=== PATIENT | male | born 1975 | race Hispanic/Latino ===

== ENCOUNTER 2019-05-03 21:22 | Emergency (ER) | payer MEDICARE ==
[~2019-05-03] VITALS: Ht 185.4 cm; Wt 156.5 kg
--- OUTSIDE RECORDS SUMMARY | 2019-05-03 21:25 | XMS REPORT ---
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 Allergies, Adverse Reactions, Alerts This patient has no known allergies or adverse reactions. Medications This patient has no known medications. Encounters Start Date/Time End Date/Time Encounter Type Admission Type Attending Clinicians Care Facility Care Department Encounter ID 2018-04-21 14:26:31 Inpatient [facility] [id number] 2018-04-21 08:24:52 Inpatient [facility] [id number] 2018-04-21 00:00:00 Inpatient [facility] [id number] 2018-04-20 00:00:00 Inpatient [facility] [id number] 2018-04-18 17:41:06 Inpatient [facility] [id number] 2018-04-16 15:30:10 Inpatient [facility] [id number] 2016-09-17 16:33:27 Inpatient [facility] [id number] 2016-09-11 14:13:26 Inpatient [facility] [id number] 2016-09-11 13:33:17 Inpatient [facility] [id number] 2016-09-07 21:19:26 Inpatient [facility] [id number] 2016-09-07 21:19:11 Inpatient [facility] [id number] 2016-09-07 21:18:56 Inpatient [facility] [id number] 2016-09-03 15:48:49 Inpatient [facility] [id number] 2016-08-29 00:00:00 Inpatient [facility] [id number] 2016-08-28 18:09:14 Inpatient [facility] [id number] 2016-08-28 07:26:01 Inpatient [facility] [id number] 2016-08-28 00:00:00 Inpatient [facility] [id number] 2016-08-26 00:28:26 Inpatient [facility] [id number] 2016-08-25 02:05:20 Inpatient [facility] [id number] 2016-08-23 14:26:53 Inpatient [facility] [id number] 2016-08-23 02:16:47 Inpatient [facility] [id number] 2016-08-23 00:02:44 Inpatient [facility] [id number] 2016-08-22 20:06:01 Inpatient [facility] [id number] 2016-08-22 03:50:19 Inpatient [facility] [id number] 2016-08-21 14:11:52 Inpatient [facility] [id number] 2016-08-21 10:12:43 Inpatient [facility] [id number] 2016-08-21 09:26:44 Inpatient [facility] [id number] 2016-08-21 05:52:24 Inpatient [facility] [id number] 2016-08-20 08:29:28 Inpatient [facility] [id number] 2016-08-19 14:34:17 Inpatient [facility] [id number] 2016-08-19 07:22:16 Inpatient [facility] [id number] 2016-08-19 07:11:43 Inpatient [facility] [id number] 2016-08-17 17:55:59 Inpatient [facility] [id number] 2016-08-13 13:52:07 Inpatient [facility] [id number] 2016-08-13 11:45:45 Inpatient [facility] [id number] 2016-08-12 09:34:44 Inpatient [facility] [id number] 2016-08-09 12:32:02 Inpatient [facility] [id number] 2016-08-09 11:48:50 Inpatient [facility] [id number] 2016-08-07 15:06:57 Inpatient [facility] [id number] 2016-08-06 11:57:24 Inpatient [facility] [id number] 2016-08-05 07:53:38 Inpatient [facility] [id number] 2016-08-02 16:54:50 Inpatient [facility] [id number] 2016-08-02 08:52:14 Inpatient [facility] [id number] 2016-07-23 10:33:11 Inpatient [facility] [id number] 2016-07-20 15:22:35 Inpatient [facility] [id number] 2016-07-20 15:21:03 Inpatient [facility] [id number] 2016-07-19 21:43:54 Inpatient [facility] [id number] 2016-07-17 04:51:29 Inpatient [facility] [id number] 2016-07-15 13:26:16 Inpatient [facility] [id number] 2016-07-15 11:17:26 Inpatient [facility] [id number] 2016-07-15 00:00:00 Inpatient [facility] [id number] 2016-07-14 10:54:17 Inpatient [facility] [id number] 2016-07-11 19:38:39 Inpatient [facility] [id number] 2016-07-11 12:43:36 Inpatient [facility] [id number] 2016-07-10 16:03:47 Inpatient [facility] [id number] 2016-07-09 06:34:07 Inpatient [facility] [id number] 2016-07-08 18:14:02 Inpatient [facility] [id number] 2016-07-08 13:15:34 Inpatient [facility] [id number] 2016-07-08 12:46:46 Inpatient [facility] [id number] 2016-07-07 19:46:56 Inpatient [facility] [id number] 2019-06-01 00:00:00 2019-06-01 00:00:00 Outpatient [facility] [id number] 2019-03-07 11:21:22 2019-03-07 11:21:22 Outpatient [facility] [id number] 2019-02-03 12:52:12 2019-02-03 12:52:12 Outpatient [facility] [id number] 2019-02-03 10:47:52 2019-02-03 10:47:52 Outpatient [facility] [id number] 2019-01-08 00:00:00 2019-01-08 00:00:00 Outpatient [facility] [id number] 2019-01-08 00:00:00 2019-01-08 00:00:00 Outpatient [facility] [id number] 2019-01-07 11:32:10 2019-01-07 11:32:10 Outpatient [facility] [id number] 2019-01-07 00:00:00 2019-01-07 00:00:00 Outpatient [facility] [id number] 2019-01-07 00:00:00 2019-01-07 00:00:00 Outpatient [facility] [id number] 2019-01-06 07:52:00 2019-01-06 07:52:00 Outpatient [facility] [id number] 2018-12-23 14:21:09 2018-12-23 14:21:09 Outpatient [facility] [id number] 2018-12-23 12:51:02 2018-12-23 12:51:02 Outpatient [facility] [id number] 2018-12-16 17:34:59 2018-12-16 17:34:59 Emergency [facility] [id number] 2018-12-16 16:24:35 2018-12-16 16:24:35 Emergency [facility] [id number] 2018-12-05 07:07:23 2018-12-05 07:07:23 Outpatient [facility] [id number] 2018-12-03 14:31:41 2018-12-03 14:31:41 Outpatient [facility] [id number] 2018-12-01 14:12:28 2018-12-01 14:12:28 Outpatient [facility] [id number] 2018-12-01 13:23:33 2018-12-01 13:23:33 Outpatient [facility] [id number] 2018-11-28 07:38:29 2018-11-28 07:38:29 Outpatient [facility] [id number] 2018-11-26 09:44:32 2018-11-26 09:44:32 Outpatient [facility] [id number] 2018-11-26 08:28:22 2018-11-26 08:28:22 Outpatient [facility] [id number] 2018-11-25 21:41:38 2018-11-25 21:41:38 Outpatient [facility] [id number] 2018-11-23 12:33:14 2018-11-23 12:33:14 Emergency [facility] [id number] 2018-11-23 07:12:04 2018-11-23 07:12:04 Outpatient [facility] [id number] 2018-11-22 07:44:37 2018-11-22 07:44:37 Emergency [facility] [id number] 2018-11-22 05:24:33 2018-11-22 05:24:33 Emergency [facility] [id number] 2018-11-17 15:57:27 2018-11-17 15:57:27 Outpatient [facility] [id number] 2018-10-27 12:33:02 2018-10-27 12:33:02 Outpatient [facility] [id number] 2018-10-27 10:40:52 2018-10-27 10:40:52 Outpatient [facility] [id number] 2018-10-17 08:24:44 2018-10-17 08:24:44 Outpatient [facility] [id number] 2018-10-15 09:01:38 2018-10-15 09:01:38 Outpatient [facility] [id number] 2018-10-10 13:54:34 2018-10-10 13:54:34 Outpatient [facility] [id number] 2018-10-10 00:00:00 2018-10-10 00:00:00 Outpatient [facility] [id number] 2018-10-03 15:46:29 2018-10-03 15:46:29 Outpatient [facility] [id number] 2018-10-03 00:00:00 2018-10-03 00:00:00 Outpatient [facility] [id number] 2018-10-03 00:00:00 2018-10-03 00:00:00 Outpatient [facility] [id number] 2018-10-03 00:00:00 2018-10-03 00:00:00 Outpatient [facility] [id number] 2018-09-23 16:38:13 2018-09-23 16:38:13 Outpatient [facility] [id number] 2018-09-18 00:00:00 2018-09-18 00:00:00 Outpatient [facility] [id number] 2018-09-17 08:53:32 2018-09-17 08:53:32 Outpatient [facility] [id number] 2018-09-08 00:00:00 2018-09-08 00:00:00 Outpatient [facility] [id number] 2018-09-03 14:27:43 2018-09-03 14:27:43 Outpatient [facility] [id number] 2018-09-02 00:00:00 2018-09-02 00:00:00 Outpatient [facility] [id number] 2018-08-26 00:00:00 2018-08-26 00:00:00 Outpatient [facility] [id number] 2018-08-25 00:00:00 2018-08-25 00:00:00 Outpatient [facility] [id number] 2018-08-20 09:11:27 2018-08-20 09:11:27 Outpatient [facility] [id number] 2018-08-18 10:14:59 2018-08-18 10:14:59 Outpatient [facility] [id number] 2018-08-18 09:11:13 2018-08-18 09:11:13 Outpatient [facility] [id number] 2018-08-15 00:00:00 2018-08-15 00:00:00 Outpatient [facility] [id number] 2018-07-29 00:00:00 2018-07-29 00:00:00 Outpatient [facility] [id number] 2018-07-28 11:30:48 2018-07-28 11:30:48 Outpatient [facility] [id number] 2018-07-28 00:00:00 2018-07-28 00:00:00 Outpatient [facility] [id number] 2018-07-28 00:00:00 2018-07-28 00:00:00 Outpatient [facility] [id number] 2018-07-23 09:41:29 2018-07-23 09:41:29 Outpatient [facility] [id number] 2018-07-23 07:08:25 2018-07-23 07:08:25 Outpatient [facility] [id number] 2018-07-23 07:08:21 2018-07-23 07:08:21 Outpatient [facility] [id number] 2018-07-16 07:59:49 2018-07-16 07:59:49 Outpatient [facility] [id number] 2018-07-16 07:59:47 2018-07-16 07:59:47 Outpatient [facility] [id number] 2018-07-14 13:30:28 2018-07-14 13:30:28 Outpatient [facility] [id number] 2018-07-07 09:13:35 2018-07-07 09:13:35 Outpatient [facility] [id number] 2018-07-07 07:55:41 2018-07-07 07:55:41 Outpatient [facility] [id number] 2018-06-30 00:00:00 2018-06-30 00:00:00 Outpatient [facility] [id number] 2018-06-23 00:00:00 2018-06-23 00:00:00 Outpatient [facility] [id number] 2018-06-19 10:26:13 2018-06-19 10:26:13 Outpatient [facility] [id number] 2018-06-19 10:26:09 2018-06-19 10:26:09 Outpatient [facility] [id number] 2018-06-11 00:00:00 2018-06-11 00:00:00 Outpatient [facility] [id number] 2018-06-05 07:37:26 2018-06-05 07:37:26 Outpatient [facility] [id number] 2018-06-05 07:36:32 2018-06-05 07:36:32 Outpatient [facility] [id number] 2018-06-03 13:45:13 2018-06-03 13:45:13 Outpatient [facility] [id number] 2018-06-02 11:34:17 2018-06-02 11:34:17 Outpatient [facility] [id number] 2018-05-30 14:55:09 2018-05-30 14:55:09 Outpatient [facility] [id number] 2018-05-26 15:49:30 2018-05-26 15:49:30 Outpatient [facility] [id number] 2018-05-26 14:12:14 2018-05-26 14:12:14 Outpatient [facility] [id number] 2018-05-14 13:36:47 2018-05-14 13:36:47 Outpatient [facility] [id number] 2018-05-14 09:44:11 2018-05-14 09:44:11 Outpatient [facility] [id number] 2018-05-14 08:20:27 2018-05-14 08:20:27 Outpatient [facility] [id number] 2018-05-14 00:00:00 2018-05-14 00:00:00 Outpatient [facility] [id number] 2018-05-14 00:00:00 2018-05-14 00:00:00 Outpatient [facility] [id number] 2018-04-30 09:30:04 2018-04-30 09:30:04 Outpatient [facility] [id number] 2018-04-30 08:37:55 2018-04-30 08:37:55 Outpatient [facility] [id number] 2018-04-15 13:51:34 2018-04-15 13:51:34 Outpatient [facility] [id number] 2018-04-14 15:38:37 2018-04-14 15:38:37 Emergency [facility] [id number] 2018-04-14 14:27:14 2018-04-14 14:27:14 Emergency [facility] [id number] 2018-04-14 12:33:28 2018-04-14 12:33:28 Inpatient [facility] [id number] 2018-03-26 00:00:00 2018-03-26 00:00:00 Outpatient [facility] [id number] 2018-03-19 13:06:16 2018-03-19 13:06:16 Outpatient [facility] [id number] 2018-03-12 09:30:33 2018-03-12 09:30:33 Outpatient [facility] [id number] 2018-03-11 08:12:39 2018-03-11 08:12:39 Outpatient [facility] [id number] 2018-02-22 00:00:00 2018-02-22 00:00:00 Outpatient [facility] [id number] 2018-02-17 13:11:07 2018-02-17 13:11:07 Outpatient [facility] [id number] 2018-02-17 13:11:03 2018-02-17 13:11:03 Outpatient [facility] [id number] 2018-02-10 09:49:58 2018-02-10 09:49:58 Outpatient [facility] [id number] 2018-02-10 00:00:00 2018-02-10 00:00:00 Outpatient [facility] [id number] 2018-02-05 04:56:13 2018-02-05 04:56:13 Emergency [facility] [id number] 2018-02-05 03:21:32 2018-02-05 03:21:32 Outpatient [facility] [id number] 2018-02-03 16:07:44 2018-02-03 16:07:44 Outpatient [facility] [id number] 2018-02-03 09:18:07 2018-02-03 09:18:07 Outpatient [facility] [id number] 2018-01-09 11:47:59 2018-01-09 11:47:59 Outpatient [facility] [id number] 2018-01-09 10:50:40 2018-01-09 10:50:40 Outpatient [facility] [id number] 2017-12-31 08:37:38 2017-12-31 08:37:38 Outpatient [facility] [id number] 2017-12-25 07:19:31 2017-12-25 07:19:31 Outpatient [facility] [id number] 2017-12-16 08:03:30 2017-12-16 08:03:30 Outpatient [facility] [id number] 2017-12-11 13:47:39 2017-12-11 13:47:39 Outpatient [facility] [id number] 2017-12-11 13:03:14 2017-12-11 13:03:14 Outpatient [facility] [id number] 2017-11-13 00:00:00 2017-11-13 00:00:00 Outpatient [facility] [id number] 2017-11-07 09:24:54 2017-11-07 09:24:54 Outpatient [facility] [id number] 2017-11-06 00:00:00 2017-11-06 00:00:00 Outpatient [facility] [id number] 2017-10-31 10:21:26 2017-10-31 10:21:26 Outpatient [facility] [id number] 2017-10-31 09:36:38 2017-10-31 09:36:38 Outpatient [facility] [id number] 2017-10-25 07:03:55 2017-10-25 07:03:55 Outpatient [facility] [id number] 2017-10-18 09:24:35 2017-10-18 09:24:35 Outpatient [facility] [id number] 2017-10-09 14:34:22 2017-10-09 14:34:22 Outpatient [facility] [id number] 2017-09-30 14:40:49 2017-09-30 14:40:49 Outpatient [facility] [id number] 2017-09-25 14:45:12 2017-09-25 14:45:12 Outpatient [facility] [id number] 2017-09-25 14:07:34 2017-09-25 14:07:34 Outpatient [facility] [id number] 2017-09-23 14:13:06 2017-09-23 14:13:06 Outpatient [facility] [id number] 2017-09-11 13:49:42 2017-09-11 13:49:42 Outpatient [facility] [id number] 2017-09-06 11:06:21 2017-09-06 11:06:21 Outpatient [facility] [id number] 2017-09-02 14:24:26 2017-09-02 14:24:26 Outpatient [facility] [id number] 2017-08-23 10:17:12 2017-08-23 10:17:12 Outpatient [facility] [id number] 2017-08-15 13:33:39 2017-08-15 13:33:39 Outpatient [facility] [id number] 2017-08-15 09:25:33 2017-08-15 09:25:33 Outpatient [facility] [id number] 2017-08-14 09:18:57 2017-08-14 09:18:57 Outpatient [facility] [id number] 2017-08-06 09:44:10 2017-08-06 09:44:10 Outpatient [facility] [id number] 2017-07-31 13:04:50 2017-07-31 13:04:50 Outpatient [facility] [id number] 2017-07-30 00:00:00 2017-07-30 00:00:00 Outpatient [facility] [id number] 2017-07-30 00:00:00 2017-07-30 00:00:00 Outpatient [facility] [id number] 2017-07-24 10:03:29 2017-07-24 10:03:29 Outpatient [facility] [id number] 2017-07-18 09:10:19 2017-07-18 09:10:19 Outpatient [facility] [id number] 2017-07-18 08:58:07 2017-07-18 08:58:07 Outpatient [facility] [id number] 2017-07-18 00:00:00 2017-07-18 00:00:00 Outpatient [facility] [id number] 2017-07-17 10:27:14 2017-07-17 10:27:14 Outpatient [facility] [id number] 2017-07-11 08:43:14 2017-07-11 08:43:14 Outpatient [facility] [id number] 2017-07-10 10:22:50 2017-07-10 10:22:50 Outpatient [facility] [id number] 2017-07-05 08:06:58 2017-07-05 08:06:58 Outpatient [facility] [id number] 2017-07-03 10:54:49 2017-07-03 10:54:49 Outpatient [facility] [id number] 2017-06-26 10:46:02 2017-06-26 10:46:02 Outpatient [facility] [id number] 2017-06-19 00:00:00 2017-06-19 00:00:00 Outpatient [facility] [id number] 2017-06-14 00:00:00 2017-06-14 00:00:00 Outpatient [facility] [id number] 2017-06-12 09:00:15 2017-06-12 09:00:15 Outpatient [facility] [id number] 2017-06-04 08:57:08 2017-06-04 08:57:08 Outpatient [facility] [id number] 2017-06-04 00:00:00 2017-06-04 00:00:00 Outpatient [facility] [id number] 2017-05-29 09:10:10 2017-05-29 09:10:10 Outpatient [facility] [id number] 2017-05-29 00:00:00 2017-05-29 00:00:00 Outpatient [facility] [id number] 2017-05-28 13:43:39 2017-05-28 13:43:39 Outpatient [facility] [id number] 2017-05-23 12:02:01 2017-05-23 12:02:01 Outpatient [facility] [id number] 2017-05-22 00:00:00 2017-05-22 00:00:00 Outpatient [facility] [id number] 2017-05-06 15:14:53 2017-05-06 15:14:53 Outpatient [facility] [id number] 2017-05-01 00:00:00 2017-05-01 00:00:00 Outpatient [facility] [id number] 2017-04-19 08:35:11 2017-04-19 08:35:11 Outpatient [facility] [id number] 2017-04-17 08:37:30 2017-04-17 08:37:30 Outpatient [facility] [id number] 2017-04-16 00:00:00 2017-04-16 00:00:00 Outpatient [facility] [id number] 2017-04-05 00:00:00 2017-04-05 00:00:00 Outpatient [facility] [id number] 2017-04-04 14:46:09 2017-04-04 14:46:09 Outpatient [facility] [id number] 2017-04-04 13:42:44 2017-04-04 13:42:44 Outpatient [facility] [id number] 2017-04-04 00:00:00 2017-04-04 00:00:00 Outpatient [facility] [id number] 2017-04-01 08:12:35 2017-04-01 08:12:35 Outpatient [facility] [id number] 2017-03-23 07:24:21 2017-03-23 07:24:21 Outpatient [facility] [id number] 2017-03-22 13:20:16 2017-03-22 13:20:16 Outpatient [facility] [id number] 2017-03-20 09:29:57 2017-03-20 09:29:57 Outpatient [facility] [id number] 2017-03-20 09:29:54 2017-03-20 09:29:54 Outpatient [facility] [id number] 2017-03-20 00:00:00 2017-03-20 00:00:00 Outpatient [facility] [id number] 2017-03-19 09:30:45 2017-03-19 09:30:45 Outpatient [facility] [id number] 2017-03-19 08:48:19 2017-03-19 08:48:19 Outpatient [facility] [id number] 2017-03-19 05:04:57 2017-03-19 05:04:57 Emergency [facility] [id number] 2017-03-19 04:57:47 2017-03-19 04:57:47 Emergency [facility] [id number] 2017-03-19 04:01:14 2017-03-19 04:01:14 Outpatient [facility] [id number] 2017-03-19 00:00:00 2017-03-19 00:00:00 Outpatient [facility] [id number] 2017-03-19 00:00:00 2017-03-19 00:00:00 Outpatient [facility] [id number] 2017-03-13 15:24:38 2017-03-13 15:24:38 Outpatient [facility] [id number] 2017-03-13 13:15:55 2017-03-13 13:15:55 Outpatient [facility] [id number] 2017-03-01 11:12:13 2017-03-01 11:12:13 Outpatient [facility] [id number] 2017-02-22 14:08:17 2017-02-22 14:08:17 Outpatient [facility] [id number] 2017-02-22 08:05:55 2017-02-22 08:05:55 Outpatient [facility] [id number] 2017-02-18 10:07:00 2017-02-18 10:07:00 Outpatient [facility] [id number] 2017-01-30 09:59:05 2017-01-30 09:59:05 Outpatient [facility] [id number] 2017-01-30 09:07:52 2017-01-30 09:07:52 Outpatient [facility] [id number] 2017-01-16 13:44:28 2017-01-16 13:44:28 Outpatient [facility] [id number] 2016-12-21 09:02:10 2016-12-21 09:02:10 Outpatient [facility] [id number] 2016-12-21 07:57:13 2016-12-21 07:57:13 Outpatient [facility] [id number] 2016-12-17 09:32:26 2016-12-17 09:32:26 Outpatient [facility] [id number] 2016-11-09 10:28:04 2016-11-09 10:28:04 Outpatient [facility] [id number] 2016-11-02 09:40:51 2016-11-02 09:40:51 Outpatient [facility] [id number] 2016-11-02 00:00:00 2016-11-02 00:00:00 Outpatient [facility] [id number] 2016-11-01 15:04:43 2016-11-01 15:04:43 Outpatient [facility] [id number] 2016-11-01 13:38:11 2016-11-01 13:38:11 Outpatient [facility] [id number] 2016-11-01 10:26:49 2016-11-01 10:26:49 Outpatient [facility] [id number] 2016-11-01 10:15:02 2016-11-01 10:15:02 Outpatient [facility] [id number] 2016-10-24 09:12:10 2016-10-24 09:12:10 Outpatient [facility] [id number] 2016-10-16 09:04:17 2016-10-16 09:04:17 Outpatient [facility] [id number] 2016-10-11 14:35:36 2016-10-11 14:35:36 Outpatient [facility] [id number] 2016-10-04 10:54:52 2016-10-04 10:54:52 Outpatient [facility] [id number] 2016-09-26 22:17:27 2016-09-26 22:17:27 Emergency [facility] [id number] 2016-09-26 19:54:25 2016-09-26 19:54:25 Emergency [facility] [id number] 2016-09-24 15:34:10 2016-09-24 15:34:10 Emergency [facility] [id number] 2016-09-24 15:34:08 2016-09-24 15:34:08 Emergency [facility] [id number] 2016-09-24 12:06:42 2016-09-24 12:06:42 Outpatient [facility] [id number] 2016-09-21 04:17:34 2016-09-21 04:17:34 Emergency [facility] [id number] 2016-09-21 01:49:17 2016-09-21 01:49:17 Emergency [facility] [id number] 2016-07-08 03:10:00 2016-07-08 03:10:00 Emergency [facility] [id number]
[2019-05-03] MEDS ORDERED: ONDANSETRON HCL INJ 2MG/ML 2ML 2 MG/ML VIAL IV STA (21:40)
[2019-05-03] MEDS ORDERED: LACTULOSE20 GM/30 M PO (21:41)
[2019-05-03] MEDS ORDERED: ULTRAM 50MG50 MG PO (21:41)
[2019-05-03] MEDS ORDERED: PEPCID20 MG PO (21:41)
[2019-05-03] MEDS ORDERED: DICYCLOMINE HCL 20 MG/2 ML VIAL IM ONE (21:45)
[2019-05-03] MEDS ORDERED: MORPHINE SULFATE INJ 4 MG/ML INJ 1ML IV ONE (21:45)
[2019-05-03 22:02] LABS: BASOPHILS % 0.3 % (0.0-1.0); EOSINOPHILS # (AUTO) 0.1 (0.0-0.4); EOSINOPHILS % 3.4 % (0.0-6.0); HEMOGLOBIN 9.4 g/dL (14.0-18.0); LYMPHOCYTES # (AUTO) 0.9 (1.0-3.2); MEAN CORPUSCULAR HEMOGLOBIN 30.9 pg (28-32); MEAN CORPUSCULAR HGB CONC 32.4 g/dL (31-35); MEAN CORPUSCULAR VOLUME 95.4 fL (81-99); MONOCYTES # (AUTO) 0.4 (0.2-0.8); NEUTROPHILS # (AUTO) 2.2 (2.1-6.9); PLATELET COUNT 87 x10e3/uL (140-360); RED BLOOD COUNT 3.04 x10e6/uL (4.3-5.7); RED CELL DISTRIBUTION WIDTH 17.6 % (11.7-14.4)
--- NOTE | 2019-05-03 22:07 | NUR ---
PT GIVEN URINAL, STATES HE DOES NOT THINK HE CAN VOID AT PRESENT. AWAKE ALERT SKIN W/D RESP NONLAB. NAD NOTED. MEDICATED PER ORDERS
[2019-05-03 22:23] LABS: ALANINE AMINOTRANSFERASE 16 IU/L (0-55); ALBUMIN 2.2 g/dL (3.5-5.0); ALBUMIN/GLOBULIN RATIO 0.5 (0.8-2.0); ALKALINE PHOSPHATASE 121 IU/L (40-150); ANION GAP 9.3 mmol/L (8-16); BLOOD UREA NITROGEN 11 mg/dL (7-26); BUN/CREATININE RATIO 15 (6-25); CARBON DIOXIDE 24 mmol/L (22-29); CHLORIDE 109 mmol/L (98-107); CREATINE KINASE 242 IU/L (30-200); CREATININE, SERUM 0.75 mg/dL (0.72-1.25); EST GLOMERULAR FILTRATION RATE > 60 ML/MIN (60-); GLUCOSE 110 mg/dL (74-118); POTASSIUM 4.3 mmol/L (3.5-5.1); SODIUM 138 mmol/L (136-145)
--- NOTE | 2019-05-03 23:41 | Diagnostic Imaging Report ---
EXAM: Gallbladder Ultrasound INDICATION: Right upper quadrant pain COMPARISON: None. TECHNIQUE: Transverse and longitudinal images of the right upper quadrant were obtained. FINDINGS: Limited evaluation due to patient body habitus. Liver: 14 cm. Suggestive nodular hepatic surface contour and hepatic heterogeneity. Main portal vein 1 cm with hepatopedal flow. Right kidney measures 12.9 cm. No mass or stone identified. No hydronephrosis. Pancreas not seen due to obscuration by overlying bowel gas. Gallbladder: Stones/Sludge: None Wall: Does not appear thickened Appearance: No wall thickening, pericholecystic fluid or hydrops. Bile Ducts: Intrahepatic Ducts: No dilatation Extrahepatic Ducts: Common bile duct measures 0.5 cm, no dilatation Free Fluid: No ascites or pleural effusion IMPRESSION: Limited evaluation due to patient body habitus. No acute sonographic abnormalities identified in the right upper quadrant on this limited exam. Possible nodular hepatic surface contour could be indicative of cirrhosis however evaluation limited. Signed by: Jona Crabtree DO on 05/03/2019 11:37 PM
[2019-05-03 23:44] LABS: AMYLASE 55 U/L (25-125); LIPASE 62 U/L (8-78)
[2019-05-03 23:57] LABS: BILIRUBIN,URINE NEGATIVE (NEGATIVE); CLARITY,URINE CLEAR (CLEAR); COLOR,URINE YELLOW (YELLOW); KETONES,URINE NEGATIVE (NEGATIVE); LEUKOCYTE ESTERASE ,URINE NEGATIVE (NEGATIVE); NITRITE,URINE NEGATIVE (NEGATIVE); PROTEIN,URINE DIPSTICK NEGATIVE (NEGATIVE)
--- NOTE | 2019-05-04 00:01 | Diagnostic Imaging Report ---
EXAMINATION: CHEST SINGLE (PORTABLE) INDICATION: COMPARISON: None FINDINGS: AP view TUBES and LINES: None. LUNGS: Lungs are well inflated. Lungs are clear. There is mild prominence of the central pulmonary vasculature, consistent with pulmonary venous congestion. PLEURA: No pleural effusion or pneumothorax. HEART AND MEDIASTINUM: Cardiac size is mildly enlarged. BONES AND SOFT TISSUES: No acute osseous lesion. Soft tissues are unremarkable. UPPER ABDOMEN: No free air under the diaphragm. IMPRESSION: Mild cardiomegaly and pulmonary vessel congestion. Signed by: Jona Crabtree DO on 05/03/2019 11:58 PM
[2019-05-04 00:10] LABS: BACTERIA,URINE FEW /HPF; EPITHELIAL CELLS,URINE FEW /LPF; MUCUS,URINE FEW (RARE); RBC,URINE 21-50 /HPF (0-5)
== END 2019-05-04 01:09 | disposition home or self-care (01) ==
LOC: ER 21:22
DX: R10.11 Right upper quadrant pain (principal); R10.13 Epigastric pain; N30.91 Cystitis, unspecified with hematuria; K21.9 Gastro-esophageal reflux disease without esophagitis; K76.9 Liver disease, unspecified
CPT/HCPCS: 36415; 71045; 76705; 80053; 81001; 82150; 82550; 82553; 83690; 84484; 85025; 93005; 99284; J0500; J2270; J2405

== ENCOUNTER 2019-06-01 20:52 | Emergency (ER) | payer MEDICARE ==
[~2019-06-01] VITALS: Ht 185.4 cm; Wt 156.5 kg
[~2019-06-01 20:52] MED LIST: LACTULOSE20 GM/30 M PO; PEPCID20 MG PO; ULTRAM 50MG50 MG PO
[2019-06-01] MEDS ORDERED: ACETAMINOPHEN 325 MG TAB PO ONE (21:15)
--- NOTE | 2019-06-01 22:14 | Diagnostic Imaging Report ---
Frontal and lateral views of the chest. HISTORY: Shortness of breath, fever COMPARISON: Chest radiograph May 03, 2019. DISCUSSION: Soft tissue attenuation partially limits sensitivity of the exam. Lungs: Low lung volumes result in bibasilar vascular crowding, accentuation of the pulmonary interstitial markings, central pulmonary vasculature, and the cardiac silhouette. Allowing for these limitations, the findings are as follows: Prominent interstitial markings. No evidence of a consolidative pneumonia or pulmonary alveolar edema. Pleura: No pleural effusion or pneumothorax. Heart and mediastinum: The cardiac silhouette and central pulmonary vasculature appear(s) mildly enlarged. Bones and soft tissues: Appear unremarkable. IMPRESSION: Cardiomegaly, central pulmonary vascular congestion, and mild interstitial edema. Signed by: Dr. Adam Lugo D.O., M.M.M. on 06/01/2019 10:10 PM
[2019-06-01 22:52] LABS: BASOPHILS % 0.3 % (0.0-1.0); EOSINOPHILS # (AUTO) 0.1 (0.0-0.4); EOSINOPHILS % 1.3 % (0.0-6.0); HEMATOCRIT 27.5 % (38.2-49.6); LYMPHOCYTES # (AUTO) 0.7 (1.0-3.2); LYMPHOCYTES % 17.8 % (18.0-39.1); MEAN CORPUSCULAR HEMOGLOBIN 30.8 pg (28-32); MEAN CORPUSCULAR HGB CONC 32.7 g/dL (31-35); MEAN CORPUSCULAR VOLUME 94.2 fL (81-99); MONOCYTES # (AUTO) 0.5 (0.2-0.8); MONOCYTES % 12.2 % (4.4-11.3); NEUTROPHILS # (AUTO) 2.6 (2.1-6.9); NEUTROPHILS % 67.9 % (38.7-80.0); PLATELET COUNT 87 x10e3/uL (140-360); RED BLOOD COUNT 2.92 x10e6/uL (4.3-5.7)
[2019-06-01 23:12] LABS: ALANINE AMINOTRANSFERASE 22 IU/L (0-55); ALBUMIN 2.2 g/dL (3.5-5.0); ALBUMIN/GLOBULIN RATIO 0.5 (0.8-2.0); ALKALINE PHOSPHATASE 92 IU/L (40-150); ANION GAP 9.9 mmol/L (8-16); BLOOD UREA NITROGEN 13 mg/dL (7-26); BUN/CREATININE RATIO 18 (6-25); CALCIUM 8.2 mg/dL (8.4-10.2); CARBON DIOXIDE 22 mmol/L (22-29); CHLORIDE 107 mmol/L (98-107); CREATININE, SERUM 0.71 mg/dL (0.72-1.25); EST GLOMERULAR FILTRATION RATE > 60 ML/MIN (60-); GLUCOSE 86 mg/dL (74-118); POTASSIUM 3.9 mmol/L (3.5-5.1); SODIUM 135 mmol/L (136-145)
[2019-06-01 23:35] VITALS: BP 128/55
== END 2019-06-01 23:50 | disposition home or self-care (01) ==
LOC: ER 20:52
DX: R06.09 Other forms of dyspnea (principal); R50.9 Fever, unspecified; J20.9 Acute bronchitis, unspecified; E11.9 Type 2 diabetes mellitus without complications; K21.9 Gastro-esophageal reflux disease without esophagitis; K76.9 Liver disease, unspecified; M54.9 Dorsalgia, unspecified; G89.29 Other chronic pain
CPT/HCPCS: 36415; 71046; 80053; 85025; 99284